=== PATIENT | female | born 1975 | race Caucasian/White ===

== ENCOUNTER 2023-11-06 10:27 | Outpatient (CLI) | payer SELFPAY ==
--- NOTE | ~2023-11-06 | XR_ITS ---
EXAMINATION: XR cervical spine 4-5V DATE: 11/06/2023 11:01 INDICATION: Neck pain. C7 radiculitis. TECHNIQUE: 5 views of cervical spine were obtained. COMPARISON: None. FINDINGS: There is kyphosis of cervical spine. Vertebral body heights are normal. There is mildly dec reased disc height at C4-C5, moderately decreased disc height at C5-C6, and severely decreased disc h eight at C6-C7. There is multilevel facet joint osteoarthritis, severe at C7-T1. On the right, there is moderate neural foraminal stenosis at C3-C4 and C5-C6. On the left, there is moderate neural donna inal stenosis at C4-C5 and C5-C6, and C6-C7. There is mild central canal stenosis at C4-C5, C5-C6, an d C6-C7. No prevertebral soft tissue swelling. IMPRESSION: 1. Severe cervical spondylosis. Reviewed, dictated and finalized at location A.
== END 2023-11-06 10:28 ==
PROVIDERS: PCP Chiropractor; Visit Provider Chiropractor
DX: M43.02 Spondylolysis, cervical region (principal); Z98.1 Arthrodesis status
CPT/HCPCS: 72050